=== PATIENT | male | born 1960 | race Caucasian/White ===

== ENCOUNTER 2017-01-09 22:58 | Emergency (ER) | payer MEDICAID ==
[2017-01-10 00:37] LABS: % BASOPHILS 0.7 % (0.0-2.0); % EOSINOPHILS 3.3 % (0.0-5.0); % LYMPHOCYTES 16.4 % (20.0-50.0); % MONOCYTES 9.5 % (2.0-10.0); % NEUTROPHILS 70.1 % (40.0-80.0); HEMATOCRIT 37.4 % (39.0-49.0); HEMOGLOBIN 12.8 gm/dL (13.2-17.3); MEAN CELL VOLUME 89.6 fl (80-99); MEAN CORPUSCULAR HEMOGLOBIN 30.6 pg (26.0-30.0); MEAN CORPUSCULAR HGB CONC 34.2 pg (28.0-36.0); MEAN PLATELET VOLUME 7.6 fl; RED BLOOD COUNT 4.18 Mil/cmm (4.30-5.70); RED CELL DISTRIBUTION WIDTH 12.5 % (11.5-20.0); WHITE BLOOD COUNT 10.1 Th/cmm (4.8-10.8)
[2017-01-10 00:45] LABS: ALB/GLOB RATIO 1.5 (1.0-1.8); ALKALINE PHOSPHATASE 91 U/L (34-104); ANION GAP 8.3 (7.0-16.0); BILIRUBIN,TOTAL 0.3 mg/dL (0.3-1.0); BUN - UREA NITROGEN 13 mg/dL (7-25); BUN/CREATININE RATIO 16.3; CALCIUM SERUM 9.3 mg/dL (8.6-10.3); CARBON DIOXIDE 26.3 mEq/L (21.0-31.0); CHLORIDE 105 mEq/L (98-107); CREATININE - SERUM 0.8 mg/dL (0.7-1.3); GLUCOSE 88 mg/dL (70-105); PLATELET COUNT 259 Th/cmm (150-400); POTASSIUM SERUM 3.6 mEq/L (3.5-5.1); SGOT 23 U/L (13-39); SGPT/ALT 21 U/L (7-52); SODIUM SERUM 136 mEq/L (136-145)
[2017-01-10 01:21] LABS: URINE BILIRUBIN NEGATIVE (NEGATIVE); URINE COLOR STRAW; URINE GLUCOSE (UA) NEGATIVE (NEGATIVE); URINE KETONE NEGATIVE (NEGATIVE)
[2017-01-10 01:22] LABS: URINE BACTERIA NONE SEEN /hpf (NONE SEEN); URINE BLOOD NEGATIVE (NEGATIVE); URINE EPITHELIAL CELLS NONE SEEN /lpf (FEW); URINE PROTEIN NEGATIVE (NEGATIVE); URINE RBC NONE SEEN /hpf (0-5); URINE UROBILINOGEN 0.2 E.U./dL (0.2 - 1.0); URINE WBC NONE SEEN /hpf (0-5)
--- NOTE | 2017-01-10 01:37 | ED Physician Chart ---
Chief Complaint/HPI - Patient Information Date Seen:: 01/10/17 Time Seen:: 23:20 Chief Complaint:: HERNIA History of Present Illness:: THIS IS A 56 YO MALE WHO IS CONCERNED ABOUT A HERNIA THAT HE HAS HAD FOR A WHILE BUT NOW CAUSING HIM PAIN. HE DENIES NAUSEA AND VOMITING. HE DENIES HAVING FEVER AND DIFFICULTY WITH DIARRHEA AND CONSTIPATION. HE DENIES HAVING DIABETES AND HEART DISEASE. Allergies:: Allergies Allergy/AdvReac Type Severity Reaction Status Date / Time No Known Allergies Allergy Verified 01/09/17 23:29 Vitals:: Vital Signs - 8 hr 01/09/17 23:10 Temp 98.1 F HR 78 RR 20 BP 127/81 O2 Sat % 98 Historian:: Patient Review:: Nurse's Note Reviewed Review of Systems - Review of Systems General/Constitutional: No fever, No chills, No weight loss, No weakness, No diaphoresis, No edema, No loss of appetite Skin: No skin lesions, No rash, No bruising Head: No headache, No light-headedness Eyes: No loss of vision, No pain, No diplopia ENT: No earache, No nasal drainage, No sore throat, No tinnitus Neck: No neck pain, No swelling, No thyromegaly, No stiffness, No mass noted Cardio Vascular: No chest pain, No palpitations, No PND, No orthopnea, No edema Pulmonary: No SOB, No cough, No sputum, No wheezing GI: No nausea, No vomiting, No diarrhea, Pain, No melena, No hematochezia, No constipation, No hematemesis, Other (RIGHT HERNIA PAIN.) G/U: No dysuria, No frequency, No hematuria Musculoskeletal: No bone or joint pain, No back pain, No muscle pain Endocrine: No polyuria, No polydipsia Psychiatric: No prior psych history, No depression, No anxiety, No suicidal ideation Hematopoietic: No bruising, No lymphadenopathy Allergic/Immuno: No urticaria, No angioedema Neurological: No syncope, No focal symptoms, No weakness, No paresthesia, No headache, No seizure, No dizziness, No confusion, No vertigo Past Medical History - Past Medical History Obtainable: Yes Past Medical History: Asthma/COPD Family History: None Social History: Smoker, No Alcohol, Illicit Drug Use, Single Surgical History: Hernia Psychiatricy History: None Medication: Reviewed Family Medical History - Family Member Father History Unknown: Yes Ethnicity: Non- Living Status: Hx Family Cancer: No Hx Family Coronary Artery Disease: No Hx Family Congestive Heart Failure: No Hx Family Hypertension: No Hx Family Stroke: No Hx Family Diabetes: No Hx Family Seizures: No Hx Family Dementia: No Hx Family AIDS: No Hx Family HIV: No Hx Family COPD: No Hx Family Hepatitis: No Hx Family Psychiatric Problems: No Hx Family Tuberculosis: No Physical Exam - Physical Examination General/Constitutional: Awake, Well-developed, well-nourished, Alert, No distress, GCS 15, Non-toxic appearing, Ambulatory Head: Atraumatic Eyes: Lids, conjuctiva normal, PERRL, EOMI Skin: Nl inspection, No rash, No skin lesions, No ecchymosis, Well hydrated, No lymphadenopathy ENMT: External ears, nose nl, Nasal exam nl, Lips, teeth, gums nl Neck: Nontender, Full ROM w/o pain, No JVD, No nuchal rigidity, No bruit, No mass, No stridor Respiratory: Nl effort/Exclusion, Clear to Auscultation, No Wheeze/Rhonchi/Rales Cardio Vascular: RRR, No murmur, gallop, rubs, NL S1 S2 GI: No tenderness/rebounding/guarding, No organomegaly, Normal BS's, Nondistended, No mass/bruits, No McBurney tenderness Other GI comments:: THERE IS A RIGHT DIRECT SLIDING REDUCIBLE HERNIA THAT IS NOT SWOLLEN OR PAINFUL ON REDUCTION. : No CVA tenderness Extremities: No tenderness or effusion, Full ROM, normal strength in all extremities, No edema, Normal digits & nails Neuro/Psych: Alert/oriented, DTR's symmetric, Normal sensory exam, Normal motor strength, Judgement/insight normal, Mood normal, Normal gait, No focal deficits Misc: normal gait, Normal back, No paraspinal tenderness Labs/Radiology/EKG Results - Lab Results Results: Laboratory Tests 01/09/17 01/10/17 01/10/17 00:15 00:15 00:15 WBC 10.1 RBC 4.18 L Hgb 12.8 L Hct 37.4 L MCV 89.6 MCH 30.6 H MCHC Differential 34.2 RDW 12.5 Plt Count 259 D MPV 7.6 Neutrophils % 70.1 Lymphocytes % 16.4 L Monocytes % 9.5 Eosinophils % 3.3 Basophils % 0.7 Sodium 136 Potassium 3.6 Chloride 105 Carbon Dioxide 26.3 Anion Gap 8.3 BUN 13 Creatinine 0.8 Est GFR ( Amer) > 60.0 Est GFR (Non-Af Amer) > 60.0 BUN/Creatinine Ratio 16.3 Glucose 88 Calcium 9.3 Total Bilirubin 0.3 AST 23 ALT 21 Alkaline Phosphatase 91 Troponin I 0.02 Total Protein 6.6 Albumin 4.0 L Globulin 2.6 Albumin/Globulin Ratio 1.5 Assessment - Assessment General Assessment: SLIDING DIRECT HERNIA ON THE RIGHT SIDE. ED Septic Shock - . Is Septic Shock (SBP<90, OR Lactate>4 mmol\L) present?: No - <6hrs of presentation: Vital Signs: Vital Signs - 8 hr 01/09/17 23:10 Temp 98.1 F HR 78 RR 20 BP 127/81 O2 Sat % 98 Reassessment (Disposition) - Reassessment Reassessment Condition:: Unchanged - Diagnosis Diagnosis:: RIGHT SIDE HERNIA (DIRECT) - Aftercare/Follow up Instructions Aftercare/Follow-Up Instructions:: Counseled pt regarding lab results/diagnosis & need follow up, Refer to Discharge Instructions, Counseled pt & family regarding lab results/diagnosis & need follow up - Patient Disposition Discharge/Transfer:: Home Condition at Disposition:: Unchanged ED Discharge Plan - Patient Disposition Admit/Discharge/Transfer: PT DISCHARGED HOME Condition at Disposition: Unchanged Instructions: Hernia, [id number] Additional Instructions: FOLLOW UP WITH YOUR REGULAR DOCTOR IN THE NEXT WEEK TO SCHEDULE A HERNIA REPAIR SURGERY. FILL YOUR PRESCRIPTION AND TAKE THEM DIRECTED. Accepting Physician: Kenny Arevalo [Courtesy] -
== END 2017-01-10 01:35 | disposition home or self-care (01) ==
LOC: ER 22:58
DX: K40.90 Unilateral inguinal hernia, without obstruction or gangrene, not specified as recurrent (principal); J44.9 Chronic obstructive pulmonary disease, unspecified; J45.909 Unspecified asthma, uncomplicated; F17.200 Nicotine dependence, unspecified, uncomplicated
CPT/HCPCS: 36415-UA; 80053-TC; 81001-TC; 84484-TC; 85025-TC; Z7502